=== PATIENT | male | born 1950 | race Caucasian/White ===

== ENCOUNTER 2017-04-27 18:07 | Observation (INO) | payer OTHER ==
[~2017-04-27] VITALS: Ht 177.8 cm; Wt 103.2 kg
[2017-04-27 18:47] LABS: CALCIUM 9.6 mg/dL (8.5-10.1); CARBON DIOXIDE 23.8 mmol/L (21-32); CHLORIDE SERUM 109 mmol/L (98-107); GFR1 > 60 mL/min; GLUCOSE SERUM 129 mg/dL (74-106); POTASSIUM SERUM 4.4 mmol/L (3.5-5.1); SODIUM SERUM 145 mmol/L (136-145)
[2017-04-27 18:48] LABS: BASOPHIL % 0.8 % (0-2); PLATELET COUNT 201 x10^3mcL (130-400)
[2017-04-27 18:52] LABS: ALBUMIN 3.6 g/dL (3.4-5.0); ALKALINE PHOSPHATASE 69 U/L (46-116); ALT/SGPT 56 U/L (16-63); AST/SGOT 30 U/L (15-37); TOTAL PROTEIN, SERUM 7.4 g/dL (6.4-8.2)
[2017-04-27 18:56] LABS: RED CELL DISTRIBUTION WIDTH 14.7 % (11.5-14.5)
[2017-04-27] MEDS ORDERED: NITROGLYCERIN0.4 MG SL (19:55)
[2017-04-27 20:25] VITALS: BP 129/79
[2017-04-27 21:09] LABS: MAGNESIUM 1.9 mg/dL (1.8-2.4)
[2017-04-27 21:12] LABS: CHOLESTEROL/HDL RATIO 5.7
[2017-04-28 00:36] LABS: microscopic required? NO
[2017-04-28 00:53] LABS: urine erythrocyte NEGATIVE (NEGATIVE)
[2017-04-28 01:12] LABS: AMPHETAMINE QUAL UR NONE DETECTED (NEG <=1000)
[2017-04-28 05:38] VITALS: BP 132/81
[2017-04-28 07:13] LABS: BASOPHIL % 0.4 % (0-2); PLATELET COUNT 198 x10^3mcL (130-400); RED CELL DISTRIBUTION WIDTH 14.8 % (11.5-14.5)
[2017-04-28 07:36] LABS: CALCIUM 9.4 mg/dL (8.5-10.1); CARBON DIOXIDE 25.7 mmol/L (21-32); CHLORIDE SERUM 106 mmol/L (98-107); CREATININE SERUM 0.9 mg/dL (0.7-1.3); GFR1 > 60 mL/min; GLUCOSE SERUM 121 mg/dL (74-106); SODIUM SERUM 139 mmol/L (136-145)
[2017-04-28 09:00] VITALS: BP 127/73
[2017-04-28 16:49] VITALS: BP 126/69
[2017-04-28 16:58] VITALS: BP 126/69
== END 2017-04-28 17:10 | disposition other institution (70) | DRG 303 ==
LOC: ED 18:07 → DU 19:03
PROVIDERS: Emergency Medicine; ADMIT Internal Medicine
DX: I25.119 Atherosclerotic heart disease of native coronary artery with unspecified angina pectoris (principal); E11.9 Type 2 diabetes mellitus without complications; I10 Essential (primary) hypertension; E78.5 Hyperlipidemia, unspecified; Z79.84 Long term (current) use of oral hypoglycemic drugs; Z87.891 Personal history of nicotine dependence
CPT/HCPCS: 82962; 83880; A9500; G0378; J2785; J3010